=== PATIENT | female | born 1975 | race Caucasian/White ===

== ENCOUNTER → 2017-01-25 | Outpatient (CLI) | payer OTHER ==
--- NOTE | 2017-01-28 13:47 | EEG PRO FEE REPORT ---
EEG INTERPRETATION PATIENT NAME: А[facility] ROOM#: ORDER#: [id number] DATE OF STUDY: 01/25/2017 : 1975 REFERRING MD: KUMAR GARVIN M.D. DIAGNOSIS: Neurofibromatosis REPORT The background activity consists of mostly 8 Hz alpha of medium voltage; with hyperventilation the record builds up but it returns to normal limits after 1 1/2 minutes. No focal slowing, amplitude asymmetry, or epileptiform discharges are seen. IMPRESSION Normal EEG INTERPRETING PHYSICIAN: DAVIS CHU M.D. /: MTASUNCION TT: 1341 ID: [id number] /: [id number] TD: [id number] JOB: [id number] cc:Radu COONEY M.D. >
== END ==
LOC: NEURO 12:57
PROVIDERS: ATTEND Pediatrics
DX: Q85.01 Neurofibromatosis, type 1 (principal); G95.89 Other specified diseases of spinal cord; F51.09 Other insomnia not due to a substance or known physiological condition
CPT/HCPCS: 95819